=== PATIENT | male | born 1995 | race Caucasian/White ===

== ENCOUNTER 2021-10-11 20:07 | Inpatient (IN) ==
[2021-10-11 20:39] LABS: Hemoglobin 15.7 g/dL (14.0-18.0); Immature Granulocytes # (auto) 0.01 K/uL (0.00-0.02); Immature Granulocytes % (auto) 0.3 %; Lymphocytes # (auto) 0.69 K/uL (1.2-3.4); Lymphocytes % (auto) 22.6 %; Mean Corpuscular Hemoglobin 32.1 pg (25-34); Mean Corpuscular Hgb Conc 34.9 g/dL (32-36); Mean Platelet Volume 10.3 fL (7.4-10.4); Monocytes # (auto) 0.24 K/uL (0.11-0.59); Monocytes % (auto) 7.9 %; Neutrophils # (auto) 2.11 K/uL (1.4-6.5); Neutrophils % (auto) 69.2 %; Platelet Count 163 K/uL (130-400); RDW Coefficient of Variation 11.5 % (11.5-14.5); Red Blood Count 4.89 M/uL (4.7-6.1); White Blood Count 3.05 K/uL (4.8-10.8)
[2021-10-11 20:54] LABS: INR 1.1 (0.9-1.1); Partial Thromboplastin Ratio 1.2; Partial Thromboplastin Time 32.5 Seconds (21.0-31.0); Prothrombin Time 11.1 Seconds (9.0-12.0)
[2021-10-11 20:56] LABS: Alanine Aminotransferase 42 (12-78); Albumin Level 3.4 gm/dl (3.4-5.0); Aspartate Aminotransferase 48 U/L (15-37); BUN Creatinine Ratio 12.5 (10-20); Blood Urea Nitrogen 11 mg/dl (7-18); Calcium 8.1 mg/dl (8.5-10.1); Carbon Dioxide 25 mmol/L (21-32); Chloride 104 mmol/L (98-107); Est GFR (African American) 137.1 ml/min; Est GFR (Non-African American) 118.3 ml/min; Glucose 93 mg/dl (70-99); Magnesium 1.9 mg/dl (1.8-2.4); Potassium 3.7 mmol/L (3.5-5.1); Sodium 136 mmol/L (136-145)
--- NOTE | 2021-10-11 21:08 | XRay Report ---
XR chest 1V portable CLINICAL HISTORY: Shortness of breath. COMPARISON STUDY: No previous studies for comparison. FINDINGS: Lung volumes are normal. There is no pneumothorax. There is blunting of the right costophre raoul angle. Moderate multifocal airspace opacities within the left lung are noted. There is no evidenc e for pulmonary edema. Cardiac size is within normal limits. IMPRESSION: 1. Moderate multifocal airspace opacities within the left lung suggestive of pneumonia. Radiographic follow to ensure resolution is recommended. 2. Blunting of the right costophrenic angle which could be due to airspace disease or a trace right p leural effusion. ACT 112: Negative or not required by law. Electronically signed by: Dashawn Villegas M.D. 10/11/2021 9:06 PM
[2021-10-11 21:14] LABS: Albumin Globulin Ratio 0.9 (0.9-2); Alkaline Phosphatase 90 U/L (45-117); Bilirubin,Total 0.5 mg/dl (0.2-1); Globulin 3.9 gm/dl (2.5-4.0); Total Protein 7.3 gm/dl (6.4-8.2); Troponin I < 0.015 ng/ml (0-0.045)
--- NOTE | 2021-10-11 21:47 | Emergency Department Note ---
Impression & Plan Acute hypoxemic respiratory failure due to COVID-19, Pneumonia due to 2019 novel coronavirus, Fever, Hypocalcemia ED Provider Note NAME: DHAVAL LOU AGE: 26 SEX: M : 1995 ARRIVES VIA: Walk-In INFORMANT: Patient, ED PROVIDER(S): Ino Isaac MD Chief Complaint: Covid illness, cough, hypoxia HPI: Patient does present with the above symptoms. Patient states that he has had symptoms since 2 Sundays ago. The patient is from [place] but is studying at [employer]. The patient is not vaccinated for COVID-19. Patient denies any fevers or chills. Patient has any chest pains or shortness of breath but did notice that he was hypoxic today at 88-89%. The patient has been taking zinc vitamin C aspirin as well as some Tylenol PM but without significant improvement in symptoms. The patient denies any prior history of heart or lung disease. Patient does have remote history of appendectomy but this was not performed recently. The patient denies any leg swelling or history of DVT or PE. Patient states that symptoms been fairly constant. ROS: See HPI for pertinent positives and negatives. A total of 10 systems were reviewed and otherwise negative. Past medical history: See below Surgical history: See below Social history: See below Physical Exam: GENERAL: NAD, wearing a mask, non-toxic. EYE EXAM: Normal conjunctiva. PERRL, no anisocoria and EOM's grossly intact w/o pain. OROPHARYNX: Moist mucus membranes. Grossly normal dentition. NECK: Supple, no nuchal rigidity, no adenopathy, non-tender. No signs of meningismus. LUNGS: Bibasilar crackles noted. Normal chest wall mechanics. HEART: Tachycardic and regular, no MRG. ABDOMEN: Abdomen soft, non-tender, normo-active bowel sounds, no masses, no rebound or guarding. BACK: No CVA TTP. SKIN: No rashes and no bruising. UPPER EXTREMITIES: Upper extremities are grossly normal. LOWER EXTREMITIES: Grossly normal, no edema. Negative Homans' sign bilaterally. NEURO EXAM: A&O x3, cranial nerves II-XII grossly intact, normal speech, moves all 4 extremities on command w/o issue. Differential diagnoses: Reactive airway disease, pneumonia, pneumothorax, COPD, CHF, infections, cardiac ischemia, pulmonary embolism, musculoskeletal, gastrointestinal, as well as other pathologies. Course: Patient was seen and evaluated the bedside. Full history physical exam was performed. EKG interpreted by me Sinus tachycardia, rate of 118, normal intervals, right axis deviation, T wave inversion in 3 and aVF, no obvious ST elevations, T wave inversion with slight depression in the lateral leads. No prior EKGs for comparison. Imaging Studies: See Below Cardiac monitoring: An order was placed for continuous cardiac monitoring. The monitor shows a rate of 106 with tachycardic and regular rhythm. MDM: Patient was seen due to concern for Covid illness. The patient is febrile and tachycardic. Blood work was obtained. The patient's EKG did show concern for right axis deviation so CT geography was ordered. The count. Kidney function is unremarkable. Mild hypocalcemia noted. Dexamethasone was ordered but was reportedly refused. The patient's older brother at 27 of COVID-19 but after discussion with the and the patient they have been "working with other doctors" who suggested that maybe the dexamethasone and/or remdesivir that his brother received may have contributed to his . I did tell the patient I was concerned about his wellbeing and that these are medications that are used for covid and hypoxemia. I did recommend that the patient be admitted. I did speak with Dr. Horan who did evaluate the patient. After further discussion with the patient the patient was contemplating leaving AGAINST MEDICAL ADVICE as he was refusing remdesivir dexamethasone, but then was amenable to staying in hospital after discussing with his and being amenable to dexamethasone treatment. This was reordered. I did convey this again to Dr. Horan and the patient was admitted to the medicine service. Critical Care: I have personally spent 35 minutes of critical care time in direct management of this patient. This includes bedside care, interpretation of diagnostic studies, and testing, discussion with consultants, patient, and family members, and other require inpatient management activities. This 35 minutes is in excess of all separately billable procedures. Past Med/Surg History Social History Smoking Status: Never smoker Feels Safe at Home: Yes Allergies Allergies Allergy/AdvReac Type Severity Reaction Status Date / Time dexamethasone Allergy Unknown Unknown Verified 10/11/21 23:25 olumiant/barcitinib Allergy Unknown Unknown Uncoded 10/11/21 23:25 ramdezavir Allergy Unknown Unknown Uncoded 10/11/21 23:25 Home Meds Home Medications Medication Instructions Recorded Confirmed No Known Home Medications 10/11/21 10/11/21 Results & Data (ED) Vital Signs Vital Signs - 24 hr 10/11/21 20:11 10/11/21 20:42 10/11/21 22:50 Temperature 39.3 C H Temperature Source Oral Pulse Rate 110 H Pulse Rate [Right Finger] 104 H Respiratory Rate 20 18 Respiratory Effort / Characteristics Non-Labored Blood Pressure 104/60 Blood Pressure Mean 74 Pulse Oximetry 90 90 94 Oxygen Delivery Method Room Air Room Air Room Air Sepsis Recent Fever Within 48 Hours No Sepsis New/Unexplained Change in Mental Status N/A Sepsis Action Taken by Nursing No Action Required 10/11/21 22:51 Temperature Temperature Source Pulse Rate Pulse Rate [Right Finger] Respiratory Rate Respiratory Effort / Characteristics Blood Pressure Blood Pressure Mean Pulse Oximetry 94 Oxygen Delivery Method Room Air Sepsis Recent Fever Within 48 Hours Sepsis New/Unexplained Change in Mental Status Sepsis Action Taken by Nursing Laboratory Data Result diagrams: 10/11/21 20:30 10/11/21 20:30 Lab Results 10/11/21 10/11/21 10/11/21 Range/Units 20:30 20:30 20:30 WBC 3.05 L (4.8-10.8) K/uL RBC 4.89 (4.7-6.1) M/uL Hgb 15.7 (14.0-18.0) g/dL Hct 45.0 (42-52) % MCV 92.0 (80-100) fL MCH 32.1 (25-34) pg MCHC 34.9 (32-36) g/dL RDW Std Deviation 39.0 (36.4-46.3) fL RDW Coeff of Broderick 11.5 (11.5-14.5) % Plt Count 163 (130-400) K/uL MPV 10.3 (7.4-10.4) fL Immature Gran % (Auto) 0.3 % Neut % (Auto) 69.2 % Lymph % (Auto) 22.6 % [place] % (Auto) 7.9 % Eos % (Auto) 0.0 % Baso % (Auto) 0.0 % Neut # (Auto) 2.11 (1.4-6.5) K/uL Lymph # (Auto) 0.69 L (1.2-3.4) K/uL [place] # (Auto) 0.24 (0.11-0.59) K/uL Eos # (Auto) 0.00 (0-0.5) K/uL Baso # (Auto) 0.00 (0-0.2) K/uL Immature Gran # (Auto) 0.01 (0.00-0.02) K/uL PT 11.1 (9.0-12.0) Seconds INR 1.1 (0.9-1.1) APTT 32.5 H (21.0-31.0) Seconds PTT Ratio 1.2 Sodium 136 (136-145) mmol/L Potassium 3.7 (3.5-5.1) mmol/L Chloride 104 (98-107) mmol/L Carbon Dioxide 25 (21-32) mmol/L Anion Gap 7.0 (3-11) BUN 11 (7-18) mg/dl Creatinine 0.90 (0.6-1.4) mg/dl Est Cr Clr Drug Dosing 164.0 ml/min Est GFR ( Amer) 137.1 ml/min Est GFR (Non-Af Amer) 118.3 ml/min BUN/Creatinine Ratio 12.5 (10-20) Glucose 93 (70-99) mg/dl Calcium 8.1 L (8.5-10.1) mg/dl Magnesium 1.9 (1.8-2.4) mg/dl Total Bilirubin 0.5 (0.2-1) mg/dl AST 48 H (15-37) U/L ALT 42 (12-78) Alkaline Phosphatase 90 (45-117) U/L Troponin I < 0.015 (0-0.045) ng/ml Total Protein 7.3 (6.4-8.2) gm/dl Albumin 3.4 (3.4-5.0) gm/dl Globulin 3.9 (2.5-4.0) gm/dl Albumin/Globulin Ratio 0.9 (0.9-2) Administered Medications Discontinued Medications Dexamethasone Sodium Phosphate (DexamethasonePf 10 Mg/Ml Vial) 6 mg IV NOW ONE Stop: 10/11/21 21:56 Last Admin: 10/11/21 22:41 Dose: Not Given Documented by: [id number] Sodium Chloride (Nss 1000ml) 1,000 mls @ 999 mls/hr IV .Q1H1M ONE Stop: 10/11/21 22:55 Last Infusion: 10/12/21 00:07 Dose: 0 mls/hr Documented by: [id number] Admin: 10/11/21 22:34 Dose: 999 mls/hr Documented by: [id number] Ioversol (Optiray 320 125ml) 120 ml IV ONCE ONE Stop: 10/11/21 23:05 Last Admin: 10/11/21 23:04 Dose: 120 ml Documented by: [id number] Ketorolac Tromethamine (Ketorolac Tromethamine 15 Mg/Ml Vial) 10 mg IV NOW ONE Stop: 10/11/21 21:56 Last Admin: 10/11/21 22:37 Dose: 10 mg Documented by: [id number] Imaging Data Radiologist's Impression: Chest X-Ray 10/11/21 20:15 XR chest 1V portable CLINICAL HISTORY: Shortness of breath. COMPARISON STUDY: No previous studies for comparison. FINDINGS: Lung volumes are normal. There is no pneumothorax. There is blunting of the right costophrenic angle. Moderate multifocal airspace opacities within the left lung are noted. There is no evidence for pulmonary edema. Cardiac size is within normal limits. IMPRESSION: 1. Moderate multifocal airspace opacities within the left lung suggestive of pneumonia. Radiographic follow to ensure resolution is recommended. 2. Blunting of the right costophrenic angle which could be due to airspace disease or a trace right pleural effusion. ACT 112: Negative or not required by law. Electronically signed by: Dashawn Villegas M.D. 10/11/2021 9:06 PM Discharge Plan Visit Data Chief Complaint: Cough Stated Complaint: LOW O2, COUGH, SOB ED Provider: Ino Isaac Discharge Problem: Acute hypoxemic respiratory failure due to COVID-19, Pneumonia due to 2019 novel coronavirus, Fever, Hypocalcemia Forms Stand Alone Forms: [employer] Prescriptions Prescriptions: No Action No Known Home Medications RF: 0 Referrals Referrals: PCP,NO [Primary Care Provider] -
[2021-10-11] MEDS ORDERED: KETOROLAC TROMETHAMINE 15 MG/ML VIAL IV ONE (21:55)
[2021-10-11] MEDS ORDERED: SODIUM CHLORIDE 0.9% 1000ML 1,000 ML IV ONE (21:55)
[2021-10-11] MEDS: dexAMETHasone**PF** 10 MG/ML VIAL IV ONE ×2 (22:34→22:41)
[2021-10-11] MEDS ORDERED: OPTIRAY 320 125ml IV ONE (23:04)
[2021-10-12] MEDS ORDERED: dexAMETHasone**PF** 10 MG/ML VIAL IV ONE (01:03)
--- NOTE | 2021-10-12 01:12 | History & Physical Report ---
Date of Service October 12, 2021 Assessment & Plan (1) Multifocal pneumonia: Plan: Multifocal pneumonia/acute respiratory failure with hypoxia due to COVID-19 virus- Dexamethasone 6 mg IV every morning Duonebs every 4 hours while awake and every 2 hours when necessary. Guaifenesin extended release 12 mg p.o. twice daily Vitamin D 1000 international units p.o. every morning Zinc sulfate 2050 mg p.o. every morning Nasal cannula oxygen, titrate to keep pulse ox 94-95% Lovenox subcu prophylaxis (2) Acute hypoxemic respiratory failure due to COVID-19: Plan: See above (3) Pneumonia due to 2019 novel coronavirus: Plan: See above History of Present Illness Chief Complaint: The patient presents to the emergency department with complaint of cough, shortness of breath, dyspnea on exertion and pulse ox at home of 88-89% Primary Care Provider: NO PCP The patient is a 26-year-old male with no significant past medical history, who's 27-year-old brother recently of COVID-19 infection in [place], presents with the above symptoms, and concern for COVID-19 infection. He was told by his mother that he should never take dexamethasone, remdesivir or Olumiant/bosutinib, because that was what his brother was on when he , and the family is concerned regarding possible allergic reaction to all 3 drugs. Abnormal laboratories: COVID-19 positive Pulse ox 90% on room air Chest x-ray with multifocal pneumonia These 3 medications were noted as an allergy on the patient's list, however, these were not medically approved by myself or the emergency department physicians. I notified the patient, as did Dr. Isaac, that if he did not want treatment with these medications, which was his choice, that there was little reason for me admit him into the hospital, and we could suggest OTC medications he could use in addition to Proventil HFA. AMA notation was being prepared by Dr. Isaac, and at that time, the patient said he would like to be admitted and only receive IV dexamethasone Allergies Allergy/AdvReac Type Severity Reaction Status Date / Time dexamethasone Allergy Unknown Unknown Verified 10/11/21 23:25 olumiant/barcitinib Allergy Unknown Unknown Uncoded 10/11/21 23:25 ramdezavir Allergy Unknown Unknown Uncoded 10/11/21 23:25 Home Medications Medication Instructions Recorded Confirmed Type No Known Home Medications 10/11/21 10/11/21 History Past Med/Surg History Social History Smoking Status: Never smoker Feels Safe at Home: Yes Review of Systems Review of Systems: The patient denies chest pain, palpitations, cough, lower extremity swelling, sore throat, fevers, chills, sweats, nausea, vomiting, diarrhea , constipation, abdominal pain, pelvic pain, blood in urine or stool, dysuria, urinary frequency or urgency, lightheadedness, dizziness, headache, memory loss, loss of consciousness, rash, abnormal bruising or bleeding, imbalance, focal weakness, numbness or tingling in arms or legs, generalized arthralgias or myalgias, back or neck pain, or night sweats. The review of systems is otherwise negative other than for that already noted above, and at least 10 systems have been reviewed. Physical Exam Physical Exam: The patient is awake, alert and oriented 3, well developed and well nourished, normocephalic and atraumatic, lying in bed and in no acute distress. HEENT--PERRL, EOMI, mucous membranes and oropharynx normal. Neck--supple. No JVD. No bruits. Thyroid normal, trachea midline, no adenopathy. Heart--normal S1 and S2. No murmurs, rubs or gallops. Lungs--coarse breath sounds bilaterally. No respiratory distress, no accessory muscle use. Abdomen--normal bowel sounds and soft. Nontender. Nondistended, no hernias or masses, no organomegaly. Extremities--no cyanosis or clubbing. No edema. Dermatologic--normal skin turgor, normal color, no abnormal lymph nodes, no rash. Neurologic--cranial nerves II through XII grossly intact. Rheumatologic--normal range of motion. Psychiatric--normal affect. Results & Data Results & Data ([facility]) Vital Signs (Past 12 Hours) Vital Signs Temp Pulse Pulse Resp BP Pulse Ox 10/11/21 22:51 94 10/11/21 22:50 104 H 18 94 10/11/21 20:42 90 10/11/21 20:11 39.3 C H 110 H 20 104/60 90 Laboratory Results Laboratory Results WBC 3.05 K/uL (4.8-10.8) L 10/11/21 20:30 RBC 4.89 M/uL (4.7-6.1) 10/11/21 20:30 Hgb 15.7 g/dL (14.0-18.0) 10/11/21 20: Hct 45.0 % (42-52) 10/11/21 20:30 MCV 92.0 fL (80-100) 10/11/21 20:30 MCH 32.1 pg (25-34) 10/11/21 20: MCHC 34.9 g/dL (32-36) 10/11/21 20:30 RDW Std Deviation 39.0 fL (36.4-46.3) 10/11/21 20: RDW Coeff of Broderick 11.5 % (11.5-14.5) 10/11/21 20: Plt Count 163 K/uL (130-400) 10/11/21 20: MPV 10.3 fL (7.4-10.4) 10/11/21 20:30 Immature Gran % (Auto) 0.3 % 10/11/21 20: Neut % (Auto) 69.2 % 10/11/21 20:30 Lymph % (Auto) 22.6 % 10/11/21 20:30 [place] % (Auto) 7.9 % 10/11/21 20:30 Eos % (Auto) 0.0 % 10/11/21 20:30 Baso % (Auto) 0.0 % 10/11/21 20:30 Neut # (Auto) 2.11 K/uL (1.4-6.5) 10/11/21 20:30 Lymph # (Auto) 0.69 K/uL (1.2-3.4) L 10/11/21 20:30 [place] # (Auto) 0.24 K/uL (0.11-0.59) 10/11/21 20:30 Eos # (Auto) 0.00 K/uL (0-0.5) 10/11/21 20: Baso # (Auto) 0.00 K/uL (0-0.2) 10/11/21 20:30 Immature Gran # (Auto) 0.01 K/uL (0.00-0.02) 10/11/21 20: PT 11.1 Seconds (9.0-12.0) 10/11/21 20:30 INR 1.1 (0.9-1.1) 10/11/21 20:30 APTT 32.5 Seconds (21.0-31.0) H 10/11/21 20:30 PTT Ratio 1.2 10/11/21 20:30 Sodium 136 mmol/L (136-145) 10/11/21 20:30 Potassium 3.7 mmol/L (3.5-5.1) 10/11/21 20:30 Chloride 104 mmol/L (98-107) 10/11/21 20:30 Carbon Dioxide 25 mmol/L (21-32) 10/11/21 20:30 Anion Gap 7.0 (3-11) 10/11/21 20:30 BUN 11 mg/dl (7-18) 10/11/21 20:30 Creatinine 0.90 mg/dl (0.6-1.4) 10/11/21 20:30 Est Cr Clr Drug Dosing 164.0 ml/min 10/11/21 20:30 Est GFR ( Amer) 137.1 ml/min 10/11/21 20:30 Est GFR (Non-Af Amer) 118.3 ml/min 10/11/21 20:30 BUN/Creatinine Ratio 12.5 (10-20) 10/11/21 20:30 Glucose 93 mg/dl (70-99) 10/11/21 20:30 Calcium 8.1 mg/dl (8.5-10.1) L 10/11/21 20:30 Magnesium 1.9 mg/dl (1.8-2.4) 10/11/21 20:30 Total Bilirubin 0.5 mg/dl (0.2-1) 10/11/21 20:30 AST 48 U/L (15-37) H 10/11/21 20:30 ALT 42 (12-78) 10/11/21 20:30 Alkaline Phosphatase 90 U/L (45-117) 10/11/21 20:30 Troponin I < 0.015 ng/ml (0-0.045) 10/11/21 20:30 Total Protein 7.3 gm/dl (6.4-8.2) 10/11/21 20:30 Albumin 3.4 gm/dl (3.4-5.0) 10/11/21 20:30 Globulin 3.9 gm/dl (2.5-4.0) 10/11/21 20:30 Albumin/Globulin Ratio 0.9 (0.9-2) 10/11/21 20:30 Impressions Chest X-Ray 10/11/21 20:15 XR chest 1V portable CLINICAL HISTORY: Shortness of breath. COMPARISON STUDY: No previous studies for comparison. FINDINGS: Lung volumes are normal. There is no pneumothorax. There is blunting of the right costophrenic angle. Moderate multifocal airspace opacities within the left lung are noted. There is no evidence for pulmonary edema. Cardiac size is within normal limits. IMPRESSION: 1. Moderate multifocal airspace opacities within the left lung suggestive of pneumonia. Radiographic follow to ensure resolution is recommended. 2. Blunting of the right costophrenic angle which could be due to airspace disease or a trace right pleural effusion. ACT 112: Negative or not required by law. Electronically signed by: Dashawn Villegas M.D. 10/11/2021 9:06 PM Diagnostic Findings [facility] Patient: DHAVAL LOU (Male) : 89 Status: ER Date: 10/11/21 23:06 Room #: History: cough +covid Slices: [id number] Priors: Tech: Ricki Yolanda @ [phone] Exams: CTA CHEST Contrast: IV Amt: 120 ml optiray 320 Accession Numbers: [id number] Referring Physician: REFERRED SELF Preliminary Findings Only See Final Report For Complete Findings CTA CHEST: Enhancement is not very robust. No central pulmonary embolus. Bilateral pulmonary infiltrates. Small bilateral pleural effusions. Cardiomegaly. Radiologist: Tru De La Cruz M.D. Study ready at 23:12 and initial results transmitted at 23:22 *This report constitutes a preliminary interpretation only. Non-acute findings felt to be unrelated to the clinical presentation may not be discussed in this report. The study will be interpreted and a final report will be generated by the local Radiologist the following shift. To reach the [facility] radiology department call [phone]. If a discrepancy is found between the preliminary and final interpretations of this study, please notify us via our Client Portal at [email or web address] under QA Exams. You can also fax this report with a description of the discrepancy, or include the final report, to our daytime fax number [phone]. If faxing, please indicate the severity of discrepancy using one of the following categories: [ ] 1 - Agree/Informational [ ] 2 - Unlikely to Affect Management [ ] 3 - Possible Eventual Change of Management [ ] 4 - Probable Immediate Change of Management For all other patient related information, please fax us at [phone]. [id number] Code Status & VTE Plan Code Status Full code VTE Prophylaxis Plan VTE Prophylaxis will be ordered: Yes PG Care Time/CCT Total # of Minutes Spent Total Time Spent with Patient: Total time spent is greater than 50% in coordination of care (as documented) at patient's floor/unit and/or counseling patient: Coding Level of Care Code 86987 Initial Inpt Care Lvl 3 Diagnoses Multifocal pneumonia J18.9 Acute hypoxemic respiratory failure due to COVID-19 U07.1; J96.01 Pneumonia due to 2019 novel coronavirus U07.1; J12.82
[2021-10-12] MEDS ORDERED: ACETAMINOPHEN 325 MG TAB PO PRN (03:55)
[2021-10-12] MEDS ORDERED: ONDANSETRON INJ 2 MG/ML 2 ML VIAL IV PRN (03:55)
[2021-10-12] MEDS ORDERED: ALBUT/IPRATROP 3MG/0.5MG NEB 3 ML VIAL NEB SCH (07:00)
--- NOTE | 2021-10-12 07:18 | CT Scan Report ---
CT angio chest PE protocol CT DOSE: 566.75 mGy.cm HISTORY: 26 years-old Male with PE. Acute shortness of breath with cough. COVID Positive. TECHNIQUE: Multiple CTA images of the chest were obtained after the intravenous administration of 120 ml Optiray. Coronal and sagittal MIPS were obtained from the axial data set and were submitted for review. All measurements were obtained according to NASCET criteria. A dose lowering technique was u tilized adhering to the principles of ALARA. COMPARISON: Chest radiograph of same day FINDINGS: CTA: There is adequate opacification of the pulmonary arteries to the level of the segmental branches with out convincing evidence of acute pulmonary embolism. Respiratory motion artifact limits the study. Fo ur-vessel morphology of the thoracic aortic arch.Heart size is normal. CT CHEST: No thyroid nodule or adenopathy. Small pleural effusions with mild dependent subsegmental bibasilar a telectasis. Patchy groundglass and consolidative opacities are noted bilaterally, most pronounced wit hin the left upper lobe and lingula and also within the lower lobes. The right upper lobe is generall y clear. The imaged upper abdominal structures are normal. The osseous structures appear intact. IMPRESSION: 1. No pulmonary emboli. 2. Bilateral intermixed groundglass and alveolar opacities, most pronounced within the left upper lob e and lingula are compatible with multifocal likely viral pneumonia. 3. Small pleural effusions. ACT 112: Negative or not required by law. The above report was generated using voice recognition software. It may contain grammatical, syntax o r spelling errors. Electronically signed by: Presley Cat M.D. 10/12/2021 7:17 AM
[2021-10-12] MEDS ORDERED: ALBUT/IPRATROP 3MG/0.5MG NEB 3 ML VIAL NEB PRN (08:32)
[2021-10-12] MEDS: dexAMETHasone 6 MG in SYRINGE 0 ML IV SCH (09:58)
[2021-10-12] MEDS: ENOXAPARIN INJ 40 MG/0.4 ML SYR SQ SCH (09:58)
[2021-10-12] MEDS: guaiFENesin 600 MG TABCR PO SCH ×2 (09:59→21:24)
[2021-10-12] MEDS: CHOLECALCIFEROL 1,000 UNITS 25 MCG TAB PO SCH (09:59)
[2021-10-12] MEDS: ZINC SULFATE 220 MG CAPSULE PO SCH (09:59)
--- NOTE | 2021-10-12 13:57 | History & Physical Bridge Note ---
Date of Service October 12, 2021 History & Physical Bridge Note I have examined the patient, reviewed the History & Physical and in the interval since the performance of the History & Physical I have noted the following changes of clinical significance: patient doing well, just resting in bed, no distress has a productive cough he is 91-93% on room air while I was at the bedside RN said he did drop to 87% early in the morning when sleeping plan: watch today, if he remains stable on room air until tomorrow morning then discharge to home will continue dexamethasone get him flutter valve, incentive spirometery, Mucinex
--- NOTE | 2021-10-12 15:51 | Electrocardiogram Report ---
Test Reason : Blood Pressure : / mmHG Vent. Rate : 118 BPM Atrial Rate : 118 BPM P-R Int : 128 ms QRS Dur : 102 ms QT Int : 318 ms P-R-T Axes : 048 093 -17 degrees QTc Int : 445 ms Sinus tachycardia Rightward axis Poor R wave progression, consider anterior MS vs. lead placement vs. LVH T wave abnormality, consider lateral ischemia Abnormal ECG No previous ECGs available Confirmed by Enrike Basilio ([id number]) on 10/12/2021 3:50:25 PM Referred By: REFERRED SELF Confirmed By:Enrike Basilio
[2021-10-13 06:14] LABS: Basophils # (auto) 0.01 K/uL (0-0.2); Basophils % (auto) 0.1 %; Hematocrit (blood only) 42.5 % (42-52); Hemoglobin 14.3 g/dL (14.0-18.0); Immature Granulocytes # (auto) 0.03 K/uL (0.00-0.02); Immature Granulocytes % (auto) 0.4 %; Lymphocytes # (auto) 0.85 K/uL (1.2-3.4); Lymphocytes % (auto) 12.6 %; Mean Corpuscular Hemoglobin 31.5 pg (25-34); Mean Corpuscular Hgb Conc 33.6 g/dL (32-36); Mean Corpuscular Volume 93.6 fL (80-100); Mean Platelet Volume 10.3 fL (7.4-10.4); Monocytes # (auto) 0.46 K/uL (0.11-0.59); Monocytes % (auto) 6.8 %; Neutrophils % (auto) 80.1 %; Platelet Count 212 K/uL (130-400); RDW Coefficient of Variation 11.9 % (11.5-14.5); RDW Standard Deviation 40.4 fL (36.4-46.3); Red Blood Count 4.54 M/uL (4.7-6.1); White Blood Count 6.75 K/uL (4.8-10.8)
[2021-10-13 06:51] LABS: Albumin Level 3.2 gm/dl (3.4-5.0); BUN Creatinine Ratio 13.7 (10-20); Bilirubin,Total 0.4 mg/dl (0.2-1); Calcium 8.3 mg/dl (8.5-10.1); Creatinine Clr Calc Pharmacy 143.6 ml/min; Est GFR (African American) 130.1 ml/min; Est GFR (Non-African American) 112.2 ml/min; Potassium 3.5 mmol/L (3.5-5.1)
[2021-10-13 06:52] LABS: Albumin Globulin Ratio 0.9 (0.9-2); C Reactive Protein 1.12 mg/dl (0-0.29); Globulin 3.7 gm/dl (2.5-4.0); Total Protein 6.9 gm/dl (6.4-8.2)
[2021-10-13] MEDS: dexAMETHasone 6 MG in SYRINGE 0 ML IV SCH (10:31)
[2021-10-13] MEDS: CHOLECALCIFEROL 1,000 UNITS 25 MCG TAB PO SCH (10:31)
[2021-10-13] MEDS: ENOXAPARIN INJ 40 MG/0.4 ML SYR SQ SCH (10:31)
[2021-10-13] MEDS: guaiFENesin 600 MG TABCR PO SCH (10:32)
[2021-10-13] MEDS: ZINC SULFATE 220 MG CAPSULE PO SCH (10:32)
--- NOTE | 2021-10-13 11:59 | Discharge Summary ---
Date of Service October 13, 2021 Admission HPI Per Admitting Provider The patient is a 26-year-old male with no significant past medical history, who's 27-year-old brother recently of COVID-19 infection in [place], presents with the above symptoms, and concern for COVID-19 infection. He was told by his mother that he should never take dexamethasone, remdesivir or Olumiant/bosutinib, because that was what his brother was on when he , and the family is concerned regarding possible allergic reaction to all 3 drugs. Abnormal laboratories: COVID-19 positive Pulse ox 90% on room air Chest x-ray with multifocal pneumonia These 3 medications were noted as an allergy on the patient's list, however, these were not medically approved by myself or the emergency department physicians. I notified the patient, as did Dr. Isaac, that if he did not want treatment with these medications, which was his choice, that there was little reason for me admit him into the hospital, and we could suggest OTC medications he could use in addition to Proventil HFA. AMA notation was being prepared by Dr. Isaac, and at that time, the patient said he would like to be admitted and only receive IV dexamethasone Principal Diagnosis COVID 19 pneumonia Acute hypoxic respiratory failure Discharge Exam General: well developed, well nourished, ill appearing, diaphoretic Neck: supple, trachea midline, normal thyroid Lungs: clear to auscultation bilaterally, slightly tachypneic, no accessory muscle use, no distress, + cough Heart: regular S1 and S2, no murmur, peripheral pulses normal, capillary refill normal, no edema Abdomen: soft, NT, ND, + BS, no hepatomegaly, normal to percussion Extremities: normal in appearance, no cyanosis, no petechiae, strength is 5/5 bilaterally Neuro: awake, cooperative, moves all extremities, no focal motor deficits, CN II-XII intact, sensation in extremities intact, normal speech Skin: warm, dry, no rash, normal turgor Psych: Awake, alert oriented x 3, euthymic affect Discharge Data Allergies Allergy/AdvReac Type Severity Reaction Status Date / Time dexamethasone Allergy Unknown Unknown Verified 10/11/21 23:25 olumiant/barcitinib Allergy Unknown Unknown Uncoded 10/11/21 23:25 ramdezavir Allergy Unknown Unknown Uncoded 10/11/21 23:25 Consultations 10/12/21 00:28 ED Decision to Admit Stat Ordered Studies 10/11/21 21:55 CT angio chest PE protocol Urgent Hospital Course (1) Multifocal pneumonia: Multifocal pneumonia/acute respiratory failure with hypoxia due to COVID- 19 virus- CT chest with majority of infiltrates in left upper lobe and lingula, right lung and left lower lobe mostly clear CRP is only 1 suggesting low level inflammation over a week into illness, closer to 10 days, no role for Remdesivir treated with dexamethasone 6mg IV daily oxygen saturations were stable all day on 09/12, he was on room air, saturations dipped when walking but no distress remains stable on room air this morning, 93% low grade temperature 2 step shows that he needs 2L on exertion discussed discharge with his over the phone, he can be managed at home at this time no role for Remdesivir, baricitinib and he is too far along to consider monoclonal antibodies plan: discharge to home on dexamethasone 6mg PO daily x 8 days stay well nourished, well hydrated, well rested Albuterol PRN can take Zinc, Vitamin D and Mucinex over the counter use Flutter valve and incentive spirometer as instructed utilized oxygen, 2L, when ambulating he has a finger pulse oximeter, instructed him to monitor oxygen, if saturations are 88% or lower he can place the 2L NC on at rest if he cannot keep saturations > 88% on the 2L then he should return to the hospital told him to lay prone or on his side at home, limit his activity for a few days off work/school for two weeks, excuse given (2) Acute hypoxemic respiratory failure due to COVID-19: See above (3) Pneumonia due to 2019 novel coronavirus: See above Total Time Total Time Spent Total Time Spent (In Minutes): 34 minutes Total Time Includes: Examination of the Patient, Discharge Planning and Medication Reconciliation Discharge Plan Discharge Items Patient Disposition: Home - Self-Care Reason For Visit: COVID-19 PNEUMONIA WITH HYPOXIA Discharge Diagnosis: COVID 19 pneumonia Acute hypoxic respiratory failure Condition on Discharge: Good Goals: complete course of dexamethasone stay well hydrated and well nourished stay well rested Activity: Per Instructions section Exercise/Sports: As tolerated Driving/Machine Use: No limitations Weightbearing: Full weightbearing Non-emergency contact: Primary Care Provider Call non-emergency contact if: you have any medication questions and your symptoms worsen Follow-up/Referrals: PCP,NO [Primary Care Provider] - Diet: Regular Addtl Attending Provider Instructions: Medications: - DEXAMETHASONE: 6mg daily for 8 days, next dose tomorrow morning - ALBUTEROL: 2 inhalations every 6 hours as needed for wheezing or shortness of breath You can take Zinc and Vitamin D daily for immune support You can take Mucinex 1200mg twice a day to thin secretions, take for 7 days use flutter valve (GoodApril) 4-5 times a day to help loosen and mobilize secretions use incentive spirometer every 1-2 hours to encourage deep breathing when you are resting, the best position you can be in is on your belly (prone position) but if you cannot lay on your belly then lay on your side use oxygen when exerting yourself monitor oxygen levels, if your saturations are below 89% you can place 2L on at all times if your saturations are below 89% despite being on 2L then return to the emergency room focus on getting more nutrition and staying well hydrated stay off of work for 2 weeks Pending Studies at Discharge: No Stand-Alone Forms: My [facility] [employer], Work/School Release, Smoking Cessation Medications and DC Order Prescriptions: New dexamethasone 4 mg tablet 6 mg PO DAILY 8 Days Qty: 12 RF: 0 albuterol sulfate 90 mcg/actuation HFA aerosol inhaler 2 inh inhalation Q6H PRN (Reason: shortness of breath or wheezing) Qty: 8.5 RF: 1 Discharge Orders: Discharge Order (Routine); Ordered 10/13/21 Ordered By: Andi Sanderson Admission Data Admit Date/Time: 10/12/21 01:10 Attending Provider: Andi Sanderson Admit Provider: Hay Haywood Primary Care Provider: PCP,NO Other Providers: Hay Haywood Coding Level of Care Code D/C DAY MANAGEMENT >30 MINS Diagnoses Multifocal pneumonia J18.9 Acute hypoxemic respiratory failure due to COVID-19 U07.1; J96.01 Pneumonia due to 2019 novel coronavirus U07.1; J12.82
== END 2021-10-13 17:51 | disposition home or self-care (01) | DRG 177 ==
LOC: ED 20:07 → SUATTDRO 10-12 01:10 → EDINP 10-12 01:10